=== PATIENT | female | born 1970 | race Caucasian/White ===

== ENCOUNTER 2017-10-14 13:36 | Emergency (ER) | payer OTHER ==
[~2017-10-14] VITALS: Ht 165.1 cm; Wt 72.6 kg
[~2017-10-14 13:36] MED LIST: ACIDOPHILUS1 EAC4 PO; ADDERALL 20 MG20 M1 PO; ADIPEX-P37.5 M1 PO; AMBIEN 5 MG TABL5 M1 PO; ATIVAN0.5 MG PO; ATIVAN1 MG PO; BANOPHEN25 MG PO; BENADRYL25 MG PO; BENTYL20 MG PO; BRINTELLIX10 MG PO; BRINTELLIX5 MG PO; BUDEPRION XL300 MG PO; CARISOPRODOL 3350 M1; CELEBREX 200 M200 M1 PO; CHOLESTYRAMINE R5 GM PO; CREON DR 36,001 EACH PO; CYMBALTA30 MG PO; DEXILANT60 MG PO; EPIPEN 2-P0.3 MG/0.3 IM; ERY-TAB250 MG PO; ERY-TAB333 MG PO; FENTANYL PA25 MCG/HR TRANSDERM; GABAPENTIN 100100 MG PO; GRALISE300 MG PO; HYOSCYAMINE0.125 MG PO; IRON15 MG/1 ML PO; KEFLEX500 MG PO; LEVSIN0.125 MG; LEVSIN0.125 MG PO; MAXALT MLT ODT10 M2; MINASTRIN 24 F1 EACH PO; MIRALAX17 GM PO; NEURONTIN 300300 M1 PO; NEXIUM40 MG PO; NORCO 5-325 TA1 EACH PO; NORTRIPTYLINE H10 M1 GT; ONDANSETRON HCL4 M2 PO; OXYCODONE HCL 55 MG PO; OXYCODONE HCL15 MG PO; OXYCONTIN10 M1 PO; PEPCID20 MG PO; PERCOCET 5-3251 EACH PO; PHENERGAN 25 MG25 M1 PO; PHENERGAN 25 MG25 MG PO; PROBIOTIC1 EAC1 PO; PROTONIX40 M1 PO; PROTONIX40 M2 PO; REGLAN 10 MG TA10 MG PO; ROBAXIN 750 MG750 M1 PO; TOPAMAX 25 MG T25 M1 PO; TRAMADOL 50 MG50 MG PO; TRANSDERM-SCO1 PATC1 TRANSDERM; TRAZODONE HCL100 MG PO; TYLENOL325 MG PO; VALTREX1000 MG PO; VICODIN 5-5001 EACH PO; VYVANSE10 MG PO; WELLBUTRIN SR100 MG PO; XANAX 0.5 MG0.5 M1 PO; XANAX 0.5 MG0.5 MG; XANAX1 MG PO; XIFAXAN550 M1 PO; ZANAFLEX2 M1 PO; ZIPSOR25 MG PO; ZOFRAN 4 MG ORAL4 M1 DIS; ZOFRAN ODT4 MG PO; ZOFRAN4 MG PO
[2017-10-14] MEDS ORDERED: ZANTAC300 MG PO (13:55)
[2017-10-14] MEDS ORDERED: LEVSIN0.125 MG PO (13:56)
[2017-10-14] MEDS ORDERED: GRALISE300 MG PO (13:56)
[2017-10-14] MEDS ORDERED: OXYCONTIN10 M1 PO (13:56)
[2017-10-14] MEDS ORDERED: ONDANSETRON HCL4 M2 PO (13:57)
[2017-10-14] MEDS ORDERED: RIZATRIPTAN10 M1 PO (13:58)
[2017-10-14] MEDS ORDERED: XANAX 0.5 MG0.5 MG PO (13:58)
[2017-10-14] MEDS ORDERED: ATIVAN1 MG PO (13:58)
[2017-10-14 14:39] LABS: URINE BILIRUBIN NEGATIVE (Negative); URINE BLOOD NEGATIVE (Negative); URINE CLARITY CLEAR; URINE COLOR YELLOW; URINE GLUCOSE-RANDOM NEGATIVE (Negative); URINE KETONES NEGATIVE (Negative); URINE LEUKOCYTES-REFLEX NEGATIVE (Negative); URINE NITRITE-REFLEX NEGATIVE (Negative); URINE PROTEIN NEGATIVE (Negative); URINE UROBILINOGEN 0.2 E.U./dl (0.2-1.0)
[2017-10-14 14:41] LABS: ABSOLUTE BASOPHILS 0.1 thou/uL (0.0-0.2); ABSOLUTE EOSINOPHILS 0.2 thou/uL (0.0-0.7); ABSOLUTE MONOCYTES 0.4 thou/uL (0.0-1.2); BASOPHILS 0.9 %; EOSINOPHILS 2.9 %; HEMATOCRIT 39.4 % (37.0-47.0); HEMOGLOBIN 13.4 gm/dL (12.0-15.0); LYMPHOCYTES 35.7 %; MCH 30.4 pg (26.0-34.0); MCV 89.4 fL (80.0-100.0); MONOCYTES 7.1 %; MPV 7.8 fl. (7.2-11.1); NUCLEATED RBCS 0 /100WBC; PLATELET COUNT* 212 thou/uL (150-400); POLYS 53.4 %; RBC 4.41 mil/uL (4.20-5.00); RDW-CV 13.3 % (10.5-14.5); WBC 5.6 thou/uL (4.0-11.0)
[2017-10-14 14:56] LABS: CREATININE 0.9 mg/dL (0.6-1.3); POTASSIUM 4.4 mmol/L (3.5-5.1)
[2017-10-14 15:00] LABS: ALBUMIN 3.6 g/dL (3.4-5.0); TOTAL BILIRUBIN 0.3 mg/dL (<0.1-1.0); TOTAL PROTEIN 7.1 g/dL (6.4-8.2)
[2017-10-14] MEDS ORDERED: PERCOCET 5-3251 EACH PO (16:51)
[2017-10-14] MEDS ORDERED: PREDNISONE 10 M10 M1 PO (17:12)
[2017-10-14 17:17] VITALS: BP 105/70
== END 2017-10-14 17:18 | disposition home or self-care (01) ==
LOC: M.ERS 13:36
PROVIDERS: Nurse Practitioner
DX: R10.9 Unspecified abdominal pain (principal); K21.9 Gastro-esophageal reflux disease without esophagitis; F32.9 Major depressive disorder, single episode, unspecified; F41.9 Anxiety disorder, unspecified; F43.10 Post-traumatic stress disorder, unspecified; F90.9 Attention-deficit hyperactivity disorder, unspecified type; Z87.442 Personal history of urinary calculi; Z88.8 Allergy status to other drugs, medicaments and biological substances; Z88.2 Allergy status to sulfonamides

== ENCOUNTER 2018-06-23 13:44 | Emergency (ER) | payer OTHER ==
[~2018-06-23] VITALS: Ht 167.6 cm; Wt 72.1 kg
[~2018-06-23 13:44] MED LIST changes: +PREDNISONE 10 M10 M1 PO; +RIZATRIPTAN10 M1 PO; +XANAX 0.5 MG0.5 MG PO; +ZANTAC300 MG PO
[2018-06-23 14:34] LABS: ABSOLUTE EOSINOPHILS 0.1 thou/uL (0.0-0.7); ABSOLUTE LYMPHOCYTES 1.9 thou/uL (0.8-5.3); ABSOLUTE MONOCYTES 0.4 thou/uL (0.0-1.2); ABSOLUTE NEUTROPHILS 2.4 thou/uL (1.6-8.1); BASOPHILS 0.7 %; EOSINOPHILS 2.5 %; HEMATOCRIT 40.5 % (37.0-47.0); HEMOGLOBIN 13.7 gm/dL (12.0-15.0); LYMPHOCYTES 39.5 %; MCHC 33.8 g/dL (28.0-37.0); MCV 91.6 fL (80.0-100.0); MONOCYTES 8.3 %; NUCLEATED RBCS 0 /100WBC; PLATELET COUNT* 213 thou/uL (150-400); RBC 4.42 mil/uL (4.20-5.00); RDW-CV 12.6 % (10.5-14.5); WBC 4.8 thou/uL (4.0-11.0)
[2018-06-23 14:40] LABS: ANION GAP 9 mmol/L (7-16); BUN 9 mg/dL (7-18); CHLORIDE 103 mmol/L (98-107); CO2 28 mmol/L (21-32); CREATININE 0.8 mg/dL (0.6-1.3); GLUCOSE 94 mg/dL (70-99); POTASSIUM 3.8 mmol/L (3.5-5.1); SODIUM 140 mmol/L (136-145)
[2018-06-23 14:47] LABS: ALBUMIN 3.6 g/dL (3.4-5.0); ALKALINE PHOSPHATASE 83 U/L (46-116); SGOT 18 U/L (15-37); SGPT 26 U/L (30-65); TOTAL BILIRUBIN 0.4 mg/dL (<0.1-1.0); TOTAL PROTEIN 6.9 g/dL (6.4-8.2); TROPONIN-I LEVEL <0.06 ng/mL (<0.06)
[2018-06-23] MEDS ORDERED: COMPAZINE10 MG PO (16:48)
[2018-06-23 16:49] LABS: URINE BILIRUBIN NEGATIVE (Negative); URINE BLOOD NEGATIVE (Negative); URINE CLARITY CLEAR; URINE COLOR YELLOW; URINE GLUCOSE-RANDOM NEGATIVE (Negative); URINE KETONES NEGATIVE (Negative); URINE LEUKOCYTES-REFLEX NEGATIVE (Negative); URINE NITRITE-REFLEX NEGATIVE (Negative); URINE PROTEIN NEGATIVE (Negative); URINE SPECIFIC GRAVITY <= 1.005 (1.005-1.030); URINE UROBILINOGEN 0.2 E.U./dl (0.2-1.0)
[2018-06-23 18:00] VITALS: BP 99/47
--- NOTE | 2018-06-25 15:32 | EKG ---
[place] [address] ELECTROCARDIOGRAM REPORT Name: APARNA VERDIN Room: 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
== END 2018-06-23 18:47 | disposition home or self-care (01) ==
LOC: M.ERS 13:44
PROVIDERS: Nurse Practitioner Family
DX: R10.11 Right upper quadrant pain (principal); R11.0 Nausea; K21.9 Gastro-esophageal reflux disease without esophagitis; F32.9 Major depressive disorder, single episode, unspecified; F41.9 Anxiety disorder, unspecified; K58.9 Irritable bowel syndrome, unspecified; Z87.442 Personal history of urinary calculi; Z88.2 Allergy status to sulfonamides; Z88.8 Allergy status to other drugs, medicaments and biological substances

== ENCOUNTER → 2018-07-07 | Outpatient (CLI) | payer OTHER ==
[~2018-07-07] MED LIST changes: +COMPAZINE10 MG PO
== END ==
LOC: M.NUC 07:12
DX: R14.0 Abdominal distension (gaseous) (principal); R11.0 Nausea; R14.3 Flatulence

== ENCOUNTER 2018-09-27 18:44 | Emergency (ER) | payer BC ==
[~2018-09-27] VITALS: Ht 167.6 cm; Wt 72.6 kg
[2018-09-27] MEDS ORDERED: BENTYL 10 MG CA10 M1 PO (19:03)
[2018-09-27 19:36] LABS: URINE BILIRUBIN NEGATIVE (Negative); URINE BLOOD NEGATIVE (Negative); URINE CLARITY CLEAR; URINE COLOR YELLOW; URINE GLUCOSE-RANDOM NEGATIVE (Negative); URINE KETONES NEGATIVE (Negative); URINE LEUKOCYTES-REFLEX TRACE (Negative); URINE NITRITE-REFLEX NEGATIVE (Negative); URINE PROTEIN NEGATIVE (Negative); URINE UROBILINOGEN 0.2 E.U./dl (0.2-1.0)
[2018-09-27 19:42] LABS: BACTERIA-REFLEX 1-9 Few /HPF (None Seen); CASTS None Seen /LPF (None Seen); CRYSTALS None Seen /LPF (None Seen); SQUAMOUS 0-3 Few /LPF (0-3); URINE RBC 0-2 Rare /HPF (0-2); URINE WBC-REFLEX 0-5 Rare /HPF (0-5)
[2018-09-27 20:08] LABS: ABSOLUTE BASOPHILS 0.1 thou/uL (0.0-0.2); ABSOLUTE EOSINOPHILS 0.2 thou/uL (0.0-0.7); ABSOLUTE LYMPHOCYTES 2.1 thou/uL (0.8-5.3); ABSOLUTE MONOCYTES 0.4 thou/uL (0.0-1.2); ABSOLUTE NEUTROPHILS 3.4 thou/uL (1.6-8.1); EOSINOPHILS 3.3 %; HEMATOCRIT 40.2 % (37.0-47.0); HEMOGLOBIN 13.4 gm/dL (12.0-15.0); LYMPHOCYTES 34.1 %; MCH 30.4 pg (26.0-34.0); MCHC 33.4 g/dL (28.0-37.0); MCV 91.1 fL (80.0-100.0); MONOCYTES 6.6 %; MPV 8.3 fl. (7.2-11.1); NUCLEATED RBCS 0 /100WBC; PLATELET COUNT* 235 thou/uL (150-400); RBC 4.41 mil/uL (4.20-5.00); RDW-CV 13.3 % (10.5-14.5); WBC 6.2 thou/uL (4.0-11.0)
[2018-09-27 20:19] LABS: ALBUMIN 3.8 g/dL (3.4-5.0); CALCIUM 9.3 mg/dL (8.5-10.1); CREATININE 0.9 mg/dL (0.6-1.3); POTASSIUM 3.8 mmol/L (3.5-5.1); TOTAL BILIRUBIN 0.1 mg/dL (<0.1-1.0); TOTAL PROTEIN 7.4 g/dL (6.4-8.2)
[2018-09-27 22:23] VITALS: BP 107/58
--- NOTE | 2018-09-28 13:20 | EKG ---
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
== END 2018-09-27 22:25 | disposition home or self-care (01) ==
LOC: M.ERS 18:44
PROVIDERS: Nurse Practitioner Family
DX: R10.9 Unspecified abdominal pain (principal); K21.9 Gastro-esophageal reflux disease without esophagitis; F32.9 Major depressive disorder, single episode, unspecified; F41.9 Anxiety disorder, unspecified; K58.9 Irritable bowel syndrome, unspecified; F98.8 Other specified behavioral and emotional disorders with onset usually occurring in childhood and adolescence; Z87.442 Personal history of urinary calculi; Z88.2 Allergy status to sulfonamides; Z88.8 Allergy status to other drugs, medicaments and biological substances

== ENCOUNTER 2018-12-08 13:42 | Emergency (ER) | payer BC ==
[~2018-12-08] VITALS: Ht 167.6 cm; Wt 72.6 kg
[~2018-12-08 13:42] MED LIST changes: +BENTYL 10 MG CA10 M1 PO
[2018-12-08] MEDS ORDERED: MEDROLDOSEPACK PO (14:30)
[2018-12-08 14:46] VITALS: BP 142/76
== END 2018-12-08 14:47 | disposition home or self-care (01) ==
LOC: M.ERS 13:42
DX: M75.51 Bursitis of right shoulder (principal); K21.9 Gastro-esophageal reflux disease without esophagitis; F32.9 Major depressive disorder, single episode, unspecified; F41.9 Anxiety disorder, unspecified; Z90.49 Acquired absence of other specified parts of digestive tract; Z88.2 Allergy status to sulfonamides; Z88.8 Allergy status to other drugs, medicaments and biological substances